=== PATIENT | female | born 1955 | race Two or more races ===

== ENCOUNTER 2024-10-29 14:12 | Inpatient (IN) | payer OTHER ==
[~2024-10-29] VITALS: Ht 157.5 cm; Wt 97.1 kg
[2024-10-29] MEDS ORDERED: HUMALOG100 UNIT/2 SQ (15:53)
[2024-10-29] MEDS ORDERED: FARXIGA10 MG PO (15:54)
[2024-10-29] MEDS ORDERED: LANTUS SOL100 UNIT/1 SQ (15:54)
--- NOTE | 2024-10-29 15:54 | NUR ---
PTE ALERTA Y ORIENTADA X3 EN COMPANAI DE FAMILIAR REFIER VENIR POR REFERIDO DE ONCOLOGA PARA REMCION DE MEDPORT INFECTADO. EL MEDPORT FUE [place] EN EL [facility] LA DRA HORNE ERICH CONSULTO A DR GUERO KIRKPATRICK EL CUAL ACEPTO EL DANIEL DE LA PTE PARA QUE SEA TRATADA EN EL HOSPITAL YA QUE LA MISMA ESTA RECIBIENDO QUIMIOTERAPIA. SE MIDEN S/V Y SE UBICA.
[2024-10-29] MEDS ORDERED: levoFLOXacin IN DEXTROSE 5 % 5 MG/ML PIGGYBAG IV ONE (17:00)
[2024-10-29] MEDS ORDERED: VANCOMYCIN HCL 1,000 MG VIAL IV ONE (17:00)
[2024-10-29] MEDS ORDERED: VANCOMYCIN HCL 1,000 MG VIAL ONE (17:04)
[2024-10-29 18:01] LABS: INR 1.12; PARTIAL THROMBOPLASTIN TIME 27.9 SECONDS (22.0-34.0); PROTHROMBIN TIME 12.1 SECONDS (9.0-11.5)
[2024-10-29 18:03] LABS: HEMATOCRIT 32.2 % (36.0-45.00); HEMOGLOBIN 10.5 g/dL (12.0-15.00); MEAN CELL VOLUME 83.2 fL (80.00-100.00); MEAN CORPUSCULAR HEMOGLOBIN 27.1 pg (27.00-32.0); MEAN CORPUSCULAR HGB CONC 32.6 g/dl (32.0-36.0); PLATELET COUNT 132 K/uL (150-450); RED BLOOD COUNT 3.87 M/uL (4.00-6.00); RED CELL DISTRIBUTION WIDTH 15.2 % (11.5-14.5)
[2024-10-29 18:05] LABS: ALBUMIN 2.9 gm/dL (3.4-5.0); BILIRUBIN TOTAL 0.35 mg/dL (0.3-1.2); CALCIUM 8.4 mg/dL (8.5-10.1); CREATININE SERUM 0.75 mg/dL (0.55-1.02); GFR 76.39; GLOBULINA 4.3 G/DL (2.4-3.5); POTASSIUM 3.11 mEq/L (3.5-5.1); TOTAL PROTEIN 7.2 gm/dL (6.4-8.2)
--- NOTE | 2024-10-29 19:09 | NUR ---
SE REALIZA TEX DE MUESTRAS BAJO MEDIDAS ASEPTICAS Y VLADIMIR ORDEN MEDICA SE SE EDUCA A PACIENTE SOBRE PROCEDIMIENTO Y LA MISMA REFIERE ENTENDER.
[2024-10-29] MEDS ORDERED: 0.9 % SODIUM CHLORIDE 1,000 ML IV SCH (22:45)
[2024-10-29] MEDS ORDERED: INSULIN LISPRO 1,000 UNIT/10 ML UNITS SUBCUTANEO PRN (23:00)
[2024-10-29] MEDS ORDERED: DEXTROSE 50 % IN WATER 0.5 G/ML DISP.SYRIN IV PRN (23:00)
[2024-10-30] MEDS ORDERED: PATIENTS OWN MEDICATION (MEDICAMENTO EN PISO) PO SCH (09:00)
[2024-10-30] MEDS ORDERED: VANCOMYCIN HCL 1,000 MG VIAL IV SCH (09:00)
[2024-10-30] MEDS ORDERED: PANTOPRAZOLE SODIUM 40 MG/VIAL VIAL IV SCH (09:00)
[2024-10-30] MEDS ORDERED: ENALAPRIL MALEATE 2.5 MG TABLET PO SCH (09:00)
[2024-10-30] MEDS ORDERED: FILGRASTIM-AAFI 300 MCG/0.5 ML SYRINGE SUBCUTANEO SCH (09:00)
[2024-10-30] MEDS ORDERED: INSULIN LISPRO 1,000 UNIT/10 ML UNITS SUBCUTANEO SCH (09:00)
[2024-10-30] MEDS ORDERED: VANCOMYCIN HCL 1,000 MG VIAL ONE (15:35)
[2024-10-30 16:00] VITALS: BP 103/62; O2SAT 97
[2024-10-30] MEDS ORDERED: MONTELUKAST SODIUM 10 MG TABLET PO SCH (17:00)
[2024-10-30] MEDS ORDERED: ATORVASTATIN CALCIUM 20 MG TABLET PO SCH (17:00)
[2024-10-30] MEDS ORDERED: CIPROFLOXACIN IN 5 % DEXTROSE 400 MG/200 ML PIGGYBAG IV SCH (21:00)
[2024-10-30] MEDS ORDERED: INSULIN GLARGINE,HUM.REC.ANLOG 1,000 UNITS/10 ML UNITS SUBCUTANEO SCH (21:00)
[2024-10-31] VITALS: BP 124/67; O2SAT 95
[2024-10-31] MEDS ORDERED: VANCOMYCIN HCL 1,000 MG VIAL ONE ×2 (07:35→15:00)
[2024-10-31 07:46] LABS: HEMATOCRIT 29.4 % (36.0-45.00); HEMOGLOBIN 9.4 g/dL (12.0-15.00); MEAN CELL VOLUME 83.5 fL (80.00-100.00); MEAN CORPUSCULAR HEMOGLOBIN 26.8 pg (27.00-32.0); MEAN CORPUSCULAR HGB CONC 32.1 g/dl (32.0-36.0); PLATELET COUNT 179 K/uL (150-450); RED BLOOD COUNT 3.52 M/uL (4.00-6.00); RED CELL DISTRIBUTION WIDTH 15.9 % (11.5-14.5)
[2024-10-31] MEDS ORDERED: POTASSIUM CHLORIDE IN WATER 100 ML IV NR (08:00)
[2024-10-31 08:48] LABS: ALBUMIN 2.5 gm/dL (3.4-5.0); BILIRUBIN TOTAL 0.46 mg/dL (0.3-1.2); CALCIUM 8.4 mg/dL (8.5-10.1); CREATININE SERUM 0.57 mg/dL (0.55-1.02); GFR 104.86; GLOBULINA 3.3 G/DL (2.4-3.5); PHOSPHOROUS 3.5 mg/dL (2.5-4.9); POTASSIUM 3.57 mEq/L (3.5-5.1); TOTAL PROTEIN 5.8 gm/dL (6.4-8.2)
[2024-10-31 08:56] LABS: C-REACTIVE PROTEIN 5.06 MG/DL (0.00-0.29); MAGNESIUM 1.3 mg/dL (1.8-2.4)
[2024-10-31] MEDS ORDERED: FILGRASTIM-AAFI 300 MCG/0.5 ML SYRINGE SUBCUTANEO SCH (09:00)
[2024-10-31 09:54] VITALS: BP 136/60; O2SAT 96
[2024-10-31 10:10] LABS: PLATELET ESTIMATE NORMAL (NORMAL)
[2024-10-31 16:00] VITALS: BP 115/50; O2SAT 96
[2024-10-31] MEDS ORDERED: BUPIVACAINE HCL/Mpf 0.5% 10ML VIAL ONE (19:44)
[2024-10-31] MEDS ORDERED: LIDOCAINE HCL 1% 20 ML VIAL IJ ONE (19:45)
[2024-10-31] MEDS ORDERED: VANCOMYCIN HCL 5 MG/ML REDILUIDO IV SCH (21:00)
[2024-11-01 08:00] VITALS: BP 150/76; O2SAT 97
[2024-11-01] MEDS ORDERED: FLUTICASONE PROPIONATE 50 MCG SPRAY NASAL SCH (09:00)
[2024-11-01] MEDS ORDERED: LORATADINE 10 MG TABLET PO SCH (09:00)
[2024-11-01 16:00] VITALS: BP 148/69; O2SAT 97
[2024-11-01] MEDS ORDERED: POTASSIUM BICARBONATE/CIT AC 25 MEQ TABLET.EFF PO SCH (17:30)
[2024-11-02 01:15] VITALS: BP 143/70; O2SAT 97
[2024-11-02 08:00] VITALS: BP 147/76; O2SAT 95
[2024-11-02 08:44] LABS: HEMATOCRIT 31.4 % (36.0-45.00); HEMOGLOBIN 10.1 g/dL (12.0-15.00); MEAN CELL VOLUME 84.2 fL (80.00-100.00); MEAN CORPUSCULAR HEMOGLOBIN 27.2 pg (27.00-32.0); MEAN CORPUSCULAR HGB CONC 32.3 g/dl (32.0-36.0); PLATELET COUNT 224 K/uL (150-450); RED BLOOD COUNT 3.73 M/uL (4.00-6.00); RED CELL DISTRIBUTION WIDTH 16.3 % (11.5-14.5)
[2024-11-02] MEDS ORDERED: PATIENTS OWN MEDICATION (MEDICAMENTO EN PISO) PO SCH (09:00)
[2024-11-02 09:23] LABS: ALBUMIN 2.6 gm/dL (3.4-5.0); BILIRUBIN TOTAL 0.4 mg/dL (0.3-1.2); CALCIUM 8.3 mg/dL (8.5-10.1); CREATININE SERUM 0.63 mg/dL (0.55-1.02); GFR 93.42; GLOBULINA 3.4 G/DL (2.4-3.5); MAGNESIUM 1.5 mg/dL (1.8-2.4); PHOSPHOROUS 4.2 mg/dL (2.5-4.9); POTASSIUM 3.87 mEq/L (3.5-5.1)
[2024-11-02 09:37] LABS: C-REACTIVE PROTEIN 4.2 MG/DL (0.00-0.29)
[2024-11-02] MEDS ORDERED: MAGNESIUM SULFATE IN WATER 50 ML IV NR (10:30)
[2024-11-02] MEDS ORDERED: MAGNESIUM SULFATE IN WATER 50 ML IV SCH (13:00)
[2024-11-02 16:00] VITALS: BP 136/74; O2SAT 95
[2024-11-02] MEDS ORDERED: INSULIN GLARGINE,HUM.REC.ANLOG 1,000 UNITS/10 ML UNITS SUBCUTANEO SCH (21:00)
[2024-11-03 02:28] VITALS: BP 126/61; O2SAT 95
[2024-11-03 08:00] VITALS: BP 151/83; O2SAT 97
[2024-11-03] MEDS ORDERED: INSULIN LISPRO 1,000 UNIT/10 ML UNITS SUBCUTANEO SCH (08:00)
[2024-11-03] MEDS ORDERED: LACTOBACILLUS ACIDOPHILUS 1 CAP CAP PO SCH ×2 (09:00→17:00)
[2024-11-03 19:48] VITALS: BP 140/76; O2SAT 97
[2024-11-04 01:08] VITALS: BP 143/73; O2SAT 95
[2024-11-04 08:00] VITALS: BP 152/58; O2SAT 98
[2024-11-04 18:39] VITALS: BP 157/55
[2024-11-05 00:30] VITALS: BP 136/62; O2SAT 98
[2024-11-05] MEDS ORDERED: VANCOMYCIN HCL 1,000 MG VIAL ONE (07:47)
[2024-11-05 08:00] LABS: HEMATOCRIT 30.4 % (36.0-45.00); HEMOGLOBIN 10.1 g/dL (12.0-15.00); MEAN CELL VOLUME 83.2 fL (80.00-100.00); MEAN CORPUSCULAR HEMOGLOBIN 27.5 pg (27.00-32.0); MEAN CORPUSCULAR HGB CONC 33.1 g/dl (32.0-36.0); PLATELET COUNT 219 K/uL (150-450); RED BLOOD COUNT 3.65 M/uL (4.00-6.00); RED CELL DISTRIBUTION WIDTH 16.5 % (11.5-14.5)
[2024-11-05 08:57] LABS: ALBUMIN 2.5 gm/dL (3.4-5.0); BILIRUBIN TOTAL 0.42 mg/dL (0.3-1.2); CALCIUM 8.2 mg/dL (8.5-10.1); CREATININE SERUM 0.6 mg/dL (0.55-1.02); GFR 98.83; GLOBULINA 3.4 G/DL (2.4-3.5); MAGNESIUM 1.6 mg/dL (1.8-2.4); POTASSIUM 3.95 mEq/L (3.5-5.1); TOTAL PROTEIN 5.9 gm/dL (6.4-8.2)
[2024-11-05 09:40] VITALS: BP 113/74; O2SAT 99
[2024-11-05 16:37] VITALS: BP 157/78; O2SAT 99
[2024-11-05] MEDS ORDERED: FLUCONAZOLE IN NACL,ISO-OSM 400 MG/200 ML PIGGYBAG IV NR (17:00)
[2024-11-05] MEDS ORDERED: INSULIN GLARGINE,HUM.REC.ANLOG 1,000 UNITS/10 ML UNITS SUBCUTANEO SCH (21:00)
[2024-11-06 03:28] VITALS: BP 153/61
[2024-11-06] MEDS ORDERED: INSULIN LISPRO 1,000 UNIT/10 ML UNITS SUBCUTANEO SCH (08:00)
[2024-11-06] MEDS ORDERED: MAGNESIUM SULFATE IN WATER 50 ML IV NR (08:09)
[2024-11-06 09:12] VITALS: BP 153/69
[2024-11-06 16:00] VITALS: BP 146/75; O2SAT 100
[2024-11-06] MEDS ORDERED: FLUCONAZOLE IN NACL,ISO-OSM 100 ML IV SCH (17:00)
[2024-11-07] VITALS: BP 148/68; O2SAT 97
[2024-11-07 08:30] VITALS: BP 126/54; O2SAT 96
[2024-11-07 15:54] VITALS: BP 149/66; O2SAT 99
[2024-11-07] MEDS ORDERED: INSULIN GLARGINE,HUM.REC.ANLOG 1,000 UNITS/10 ML UNITS SUBCUTANEO SCH (21:00)
[2024-11-08 00:59] VITALS: BP 131/56; O2SAT 97
[2024-11-08 08:00] VITALS: BP 130/50; O2SAT 97
[2024-11-08 16:08] VITALS: BP 152/61; O2SAT 97
[2024-11-08] MEDS ORDERED: INSULIN GLARGINE,HUM.REC.ANLOG 1,000 UNITS/10 ML UNITS SUBCUTANEO SCH (21:00)
[2024-11-09 01:09] VITALS: BP 147/79; O2SAT 98
[2024-11-09 08:00] VITALS: BP 140/63; O2SAT 96
[2024-11-09 08:33] LABS: ALBUMIN 2.5 gm/dL (3.4-5.0); BILIRUBIN TOTAL 0.39 mg/dL (0.3-1.2); CALCIUM 8.5 mg/dL (8.5-10.1); CREATININE SERUM 0.59 mg/dL (0.55-1.02); GFR 100.77; GLOBULINA 3.3 G/DL (2.4-3.5); MAGNESIUM 1.7 mg/dL (1.8-2.4); PHOSPHOROUS 3.5 mg/dL (2.5-4.9); POTASSIUM 3.9 mEq/L (3.5-5.1); TOTAL PROTEIN 5.8 gm/dL (6.4-8.2)
[2024-11-09] MEDS ORDERED: MAGNESIUM SULFATE IN WATER 50 ML IV NR (11:10)
[2024-11-09] MEDS ORDERED: ENALAPRIL MALE2.5 MG PO (12:31)
[2024-11-09] MEDS ORDERED: LIPITOR20 MG PO (12:31)
[2024-11-09] MEDS ORDERED: FLUCONAZOLE200 MG PO (12:31)
[2024-11-09] MEDS ORDERED: MONTELUKAST SOD10 MG PO (12:31)
[2024-11-09] MEDS ORDERED: ZYRTEC10 M3 PO (12:32)
[2024-11-09] MEDS ORDERED: CORTISONE60 GM TOP (12:33)
[2024-11-09] MEDS ORDERED: INSULIN GL300 UNIT/1 SUBCUTANEO (12:36)
[2024-11-09] MEDS ORDERED: INSULIN LI100 UNIT/2 SUBCUTANEO (12:37)
[2024-11-09] MEDS ORDERED: FARXIGA10 MG PO (12:38)
== END 2024-11-09 13:17 | disposition home or self-care (01) | DRG 473 ==
LOC: ER 14:12 → SURH 22:31
PROVIDERS: Emergency Medicine; Internal Medicine Infectious Disease; ADMIT Internal Medicine; ATTEND Internal Medicine
PROC: 0RG20A0 Fusion of 2 or more Cervical Vertebral Joints with Interbody Fusion Device, Anterior Approach, Anterior Column, Open Approach (ICD-10-PCS; principal; 2024-11-07)
PROC: 0RT30ZZ Resection of Cervical Vertebral Disc, Open Approach (ICD-10-PCS; 2024-11-07)
PROC: 0PB40ZZ Excision of Thoracic Vertebra, Open Approach (ICD-10-PCS; 2024-11-07)
PROC: 07DS0ZZ Extraction of Vertebral Bone Marrow, Open Approach (ICD-10-PCS; 2024-11-07)
PROC: 4A1104G Monitoring of Peripheral Nervous Electrical Activity, Intraoperative, Open Approach (ICD-10-PCS; 2024-11-07)
PROC: 4A12X4Z Monitoring of Cardiac Electrical Activity, External Approach (ICD-10-PCS; 2024-11-07)
DX: M50.023 Cervical disc disorder at C6-C7 level with myelopathy (principal); M50.021 Cervical disc disorder at C4-C5 level with myelopathy; M50.022 Cervical disc disorder at C5-C6 level with myelopathy